=== PATIENT | female | born 1970 ===

== ENCOUNTER 2016-09-25 21:58 | Emergency (ER) | payer SELFPAY ==
--- NOTE | ~2016-09-25 | ER ---
PATIENT'S NAME: CANDICE MCGARRY V [facility] AGE: 45 Y [address] ROOM: [place] [address] LOCATION: [facility] ADMIT DATE: 09/25/2016 ER/Outpatient Report DISCHARGE DATE: 09/25/2016 FAMILY PHYSICIAN: Physician, Unknown ATTENDING PHYSICIAN: Thai Winston Time of Arrival: 2203 hours. Time of Exam: 2203 hours. CHIEF COMPLAINT: Nausea and vomiting. HISTORY OF PRESENT ILLNESS: The patient is a 3rd member of the family to become ill tonight. The youngest daughter was sick yesterday and then the older daughter was sick started this morning, and the patient started this afternoon. She has been nauseated, vomited twice here in the ER. She has had generalized headache. Denies running a fever. Has not had any diarrhea. Denies any pain or discomfort with urination. Has some generalized epigastric discomfort. ALLERGIES: NO KNOWN ALLERGIES. CURRENT MEDICATIONS: Synthroid. PAST MEDICAL HISTORY: Hypothyroidism. SOCIAL HISTORY: Lives at home with children. REVIEW OF SYSTEMS: All negative other than those mentioned in the HPI. PHYSICAL EXAMINATION: VITAL SIGNS: She weighs 62 kg. Blood pressure is 126/65, pulse of 90, respirations 16, temperature of 98.2, and O2 saturation was 95% on room air. GENERAL: She is awake, alert, and oriented x4. SKIN: [place], warm, and dry. RESPIRATIONS: Even and nonlabored. Lung sounds are clear throughout. HEART: Regular rate and rhythm. ABDOMEN: Soft, nondistended. Bowel sounds are present. She has generalized tenderness of her abdomen. PATIENT'S NAME: CANDICE MCGARRY V [facility] AGE: 45 Y [address] ROOM: [place], [place] [address] LOCATION: [facility] ADMIT DATE: 09/25/2016 ER/Outpatient Report DISCHARGE DATE: 09/25/2016 FAMILY PHYSICIAN: Physician, Unknown ATTENDING PHYSICIAN: Thai Winston EMERGENCY DEPARTMENT COURSE: Saline lock was initiated. Fluids of normal saline were started at a wide- open rate. She was given Zofran 4 mg IV. Lab work was drawn. CBC is within normal limits. Chem panel is within normal limits. Free T4 was 1.3, TSH of 5.37. The patient states she was feeling better after the fluids and Zofran. IMPRESSION: 1. Gastroenteritis. 2. Elevated TSH. PLAN: The patient will be discharged home. Clear liquid diet for the next 24 hours and gradually increase her diet. Avoiding milk products for the next 2-3 days. Tylenol or ibuprofen as needed. I recommend that she follow up with her primary provider in the next 2-3 days to have her Synthroid adjusted as needed. She verbalizes understanding. VY SHER APRN FOR [facility]/pio /[id number] d: 09/26/16 0126 t: 10/26/16 0957, OUTPATIENT REPORT
[2016-09-25 22:24] LABS: BASOPHIL % 0.1 %; EOSINOPHIL # 0.1 K/uL (0.0-0.5); EOSINOPHIL % 0.5 %; HEMATOCRIT 36.5 % (33.0-46.0); HEMOGLOBIN 12.4 g/dL (10.0-15.0); IMMATURE GRANULOCYTE % 0.2 %; LYMPHOCYTE # 0.6 K/uL (0.8-4.0); LYMPHOCYTE % 5.7 %; MCH 29.6 pg (27.0-34.0); MCV 87.1 fl (83.0-98.0); MONOCYTE # 0.6 K/uL (0.0-1.0); MONOCYTE % 5.9 %; NEUTROPHIL # (ANC) 8.4 K/uL (1.8-7.8); NEUTROPHIL % 87.6 %; NRBC % 0 /100WBC (0-0.00); PLATELET COUNT 334 K/uL (150-450); RBC 4.19 M/uL (3.50-5.50); RDW-CV 13.6 % (11.9-14.6); WBC 9.6 K/uL (4.0-11.0)
[2016-09-25 22:43] LABS: ALBUMIN 3.9 gm/dL (3.5-5.0); ANION GAP 14.1 (10.0-19.0); CALCIUM 8.2 mg/dL (8.5-10.5); POTASSIUM 3.1 mMol/L (3.7-5.1); TOTAL BILIRUBIN 1.6 mg/dL (0.0-1.5); TOTAL PROTEIN 7.6 g/dL (6.0-8.4)
== END 2016-09-25 23:06 | disposition disaster alternative care site (69) ==
LOC: GMED 21:58
PROVIDERS: Emergency Medicine
DX: K52.9 Noninfective gastroenteritis and colitis, unspecified (principal); R94.6 Abnormal results of thyroid function studies
CPT/HCPCS: J2405; J7030